=== PATIENT | female | born 1940 | race Caucasian/White ===

== ENCOUNTER 2017-11-26 09:52 | Emergency (ER) | payer MEDICARE ==
[~2017-11-26] VITALS: Ht 175.3 cm; Wt 62.2 kg
[~2017-11-26 09:52] MED LIST: Betimol5 ML; EPIN.3I IM; FISH1000; LUMIGAN2.5 ML BOTHEYES; MULVITMIND PO
[2017-11-26] MEDS ORDERED: [UNRECOGNIZED DRUG - REMARK] (10:34)
[2017-11-26 11:29] LABS: Influenza A Negative (NEGATIVE); Influenza B Negative (NEGATIVE)
[2017-11-26] MEDS ORDERED: Zithromax250 MG PO (11:39)
[2018-08-28] MEDS ORDERED: Multiple Vitam1 EACH PO (15:17)
[2018-08-28] MEDS ORDERED: EPIPEN0.3 MG/0.3 IM (15:17)
[2018-08-28] MEDS ORDERED: LUMIGAN2.5 ML BOTHEYES (15:17)
== END 2017-11-26 12:11 | disposition home or self-care (01) ==
LOC: ER 09:52
PROVIDERS: Physician Assistant
DX: R05 Cough (principal); Z91.030 Bee allergy status; H40.9 Unspecified glaucoma; Z90.710 Acquired absence of both cervix and uterus
CPT/HCPCS: 71046; 87804; 99283

== ENCOUNTER → 2018-03-27 | Outpatient (CLI) | payer MEDICARE ==
[~2018-03-27] MED LIST changes: +Zithromax250 MG PO; +[UNRECOGNIZED DRUG - REMARK]
== END | disposition home or self-care (01) ==
LOC: LAB SHORT 10:59 → LAB 10:59
DX: N28.9 Disorder of kidney and ureter, unspecified (principal)
CPT/HCPCS: 82043

== ENCOUNTER → 2018-03-29 | Outpatient (CLI) | payer MEDICARE ==
[2018-03-29 11:07] LABS: Protein, Urine Quantitative 5.8 mg/dL (0.0-11.9)
== END ==
LOC: LAB SHORT 09:05 → OLS 09:05
PROVIDERS: Family Medicine
DX: N28.9 Disorder of kidney and ureter, unspecified (principal)
CPT/HCPCS: 81050; 84156

== ENCOUNTER 2022-12-13 21:24 | Emergency (ER) | payer OTHER ==
[~2022-12-13] VITALS: Ht 154.9 cm; Wt 68.0 kg
[~2022-12-13 21:24] MED LIST changes: +CALCIUM 500 MG1 EAC2 PO; +DICL75ER PO; +DOCU100 PO; +DONEPEZIL HCL10 MG PO; +EPIPEN0.3 MG/0.3 IM; +FURO20 PO; +MEMA10 PO; +Multiple Vitam1 EACH PO; +OLAN5 PO; +OXYB5 PO; +SERT50 PO
[2022-12-13 21:44] LABS: BASOPHILS ABSOLUTE AUTO 0.03 K/mm3 (0.00-0.23); BASOPHILS PERCENT AUTO 0 % (0-2); EOSINOPHILS ABSOLUTE AUTO 0.02 K/mm3 (0.00-0.68); EOSINOPHILS PERCENT AUTO 0 % (0-6); Hematocrit 39.2 % (33.0-51.0); Hemoglobin 13.1 g/dL (11.5-16.0); IMMATURE GRAN ABSOLUTE AUTO 0.02 K/mm3 (0.00-0.10); IMMATURE GRAN PERCENT AUTO 0 % (0-1); LYMPHOCYTES ABSOLUTE AUTO 0.88 K/mm3 (0.84-5.20); LYMPHOCYTES PERCENT AUTO 10 % (21-46); MONOCYTES ABSOLUTE AUTO 1.39 K/mm3 (0.16-1.47); MONOCYTES PERCENT AUTO 15 % (4-13); Mean Corpuscular HGB 29.6 pg (26.0-34.0); Mean Corpuscular HGB Conc 33.4 g/dL (31.5-36.5); Mean Corpuscular Volume 89 fL (80-100); Mean Platelet Volume 9.5 fL (9.1-12.4); NEUTROPHILS ABSOLUTE AUTO 6.94 K/mm3 (1.96-9.15); NEUTROPHILS PERCENT AUTO 75 % (41-73); Platelet Count 237 K/mm3 (150-400); RDW Coefficient Variation 13.5 % (11.7-14.2); RDW Standard Deviation 44.4 fL (35.1-46.3); Red Blood Cell Count 4.42 M/mm3 (3.80-5.20); White Blood Cell Count 9.28 K/mm3 (4.00-11.30)
[2022-12-13 22:01] LABS: Albumin, Blood 3.4 g/dL (3.4-5.0); Albumin/Globulin Ratio 0.8 (0.8-1.8); Bilirubin, Total 0.3 mg/dL (0.1-1.0); Bun/Creatinine Ratio 14.3 (12.0-20.0); Calcium, Blood 9.4 mg/dL (8.5-10.1); Creatinine, Blood 1.26 mg/dL (0.40-1.00); Globulin, Blood 4.5 g/dL (2.2-4.0); Total Protein, Blood 7.9 g/dL (6.4-8.2)
[2022-12-13 23:39] LABS: Source, Urine Straight Cath
[2022-12-13 23:43] LABS: Bilirubin, Urine Neg (Neg); Blood, Urine 2+ (Neg); Glucose Qualitative, Urine 1+ (Neg); Ketones, Urine Neg (Neg); Leukocyte Esterase, Urine Neg (Neg); Nitrite, Urine Neg (Neg); Protein, Urine 2+ (Neg); Specific Gravity, Urine 1.015 (1.003-1.022); Urobilinogen, Urine NORM (Normal)
[2022-12-14 00:17] LABS: Influenza A, PCR NEGATIVE (NEGATIVE); Influenza B, PCR NEGATIVE (NEGATIVE); Resp Syncytial Virus, PCR NEGATIVE (NEGATIVE)
[2022-12-14 00:34] LABS: Appearance, Urine Hazy (Clear); Color, Urine Yellow (P-Yellow)
[2022-12-14 00:35] LABS: Amorphous Mod (0-Heavy); Bacteria Few /hpf; Red Blood Cells, Urine 0-2 /hpf (0-2); Squamous Epithelial Cells Rare /hpf (Few); White Blood Cells, Urine 0-2 /hpf (0-5)
[2022-12-14 01:44] LABS: SARS-Cov-2 (COVID-19) PCR, MMC POSITIVE (NEGATIVE)
[2022-12-14] MEDS ORDERED: ONDA4ODT MM (02:12)
== END 2022-12-14 02:21 | disposition home or self-care (01) ==
LOC: ER 21:24
PROVIDERS: Student in an Organized Health Care Education/Training Program
DX: U07.1 COVID-19 (principal); E86.0 Dehydration; F03.90 Unspecified dementia, unspecified severity, without behavioral disturbance, psychotic disturbance, mood disturbance, and anxiety; R11.10 Vomiting, unspecified; I10 Essential (primary) hypertension; Z91.038 Other insect allergy status; Z79.899 Other long term (current) drug therapy
CPT/HCPCS: 0241U; 36415; 80053; 81001; 83735; 85025; 93005; 93010; 96360-59; 99285-25; A9270; J7030; P9612